=== PATIENT | female | born 1970 | race African-American/Black ===

== ENCOUNTER 2017-12-10 15:24 | Emergency (ER) | payer SELFPAY ==
[2017-12-10] MEDS ORDERED: Lidocaine 1% (PF) 30 ML VIAL ONE (17:38)
[2017-12-10] MEDS ORDERED: Lidocaine 1% PF 5 ML VIAL ONE (17:50)
[2017-12-10] MEDS ORDERED: Bacitracin Zinc 1 Packet ONE (18:18)
--- NOTE | 2017-12-10 19:53 | RAD ---
THREE VIEWS OF THE LEFT INDEX FINGER: Date: 12-10-17 Comparison: None. History: 47-year-old female reports history of cutting finger with a box one week ago. FINDINGS: There is soft tissue swelling at the base of the index finger overlying the proximal phalanx. This is seen both dorsally and along the volar aspect of the finger. No radiopaque foreign body or subcutane ous gas. No acute fracture or dislocation. IMPRESSION: Nonspecific soft tissue swelling seen at the base of the index finger which may signify infectious/ly tic change and/or swelling from trauma. POS: [facility]
== END 2017-12-10 18:28 | disposition home or self-care (01) ==
LOC: ERS 15:24
DX: L02.512 Cutaneous abscess of left hand (principal); M41.9 Scoliosis, unspecified; F17.210 Nicotine dependence, cigarettes, uncomplicated
CPT/HCPCS: 10060; J2001

== ENCOUNTER 2018-11-01 15:22 | Emergency (ER) | payer SELFPAY ==
[2018-11-01] MEDS ORDERED: Dexamethasone 10 MG/ML VIAL ONE (17:15)
== END 2018-11-01 18:24 | disposition home or self-care (01) ==
LOC: ERS 15:22
DX: J02.0 Streptococcal pharyngitis (principal); F17.210 Nicotine dependence, cigarettes, uncomplicated
CPT/HCPCS: 87081; 87430; 87804; 99283; J1100

== ENCOUNTER 2018-11-03 08:56 | Emergency (ER) | payer SELFPAY | END 2018-11-03 10:07 | disposition home or self-care (01) | LOC: ERS 08:56 | DX: H10.9 Unspecified conjunctivitis (principal); F17.210 Nicotine dependence, cigarettes, uncomplicated | CPT/HCPCS: 99283 ==

== ENCOUNTER 2021-05-24 | Emergency (ER) | payer SELFPAY | END 2021-05-24 13:29 | disposition home or self-care (01) ==

== ENCOUNTER 2025-05-07 11:22 | Emergency (ER) | payer OTHER ==
[2025-05-07] MEDS ORDERED: HYDROcodone/Acetaminophen 10/325 mg Tablet ONE (11:57)
== END 2025-05-07 13:45 | disposition home or self-care (01) ==
LOC: ERS 11:22
DX: M25.571 Pain in right ankle and joints of right foot (principal); F17.210 Nicotine dependence, cigarettes, uncomplicated

== ENCOUNTER 2025-09-09 16:21 | Emergency (ER) | payer OTHER | END 2025-09-09 18:42 | disposition home or self-care (01) | LOC: ERS 16:21 | DX: U07.1 COVID-19 (principal); F17.210 Nicotine dependence, cigarettes, uncomplicated | CPT/HCPCS: 87428; 99284 ==